=== PATIENT | female | born 1940 | race Caucasian/White ===

== ENCOUNTER 2017-07-19 03:29 | Day surgery (SDC) | payer MEDICARE, BC ==
[2015-07-11 09:45] VITALS: Ht 167.6 cm; Wt 59.0 kg
--- NOTE | 2017-07-18 22:57 | HISTORY AND PHYSICAL ---
DATE OF ADMISSION: July 19, 2017 CHIEF COMPLAINT Postmenopausal bleeding. HISTORY OF PRESENT ILLNESS The patient is a 76-year-old female with postmenopausal bleeding beginning two months ago, mild in intensity, and it is aggravated by finding a polypoid mass on saline infusion. She had an endometrial biopsy that did not show signs of malignant. She was admitted to the ICU for an electrolyte abnormality on June 17, 2017, and this is a rescheduled surgery from early in June. The plan was to proceed with hysteroscopic polypectomy and fractional D and C. MEDICATIONS Mirtazapine 30 mg daily. ALLERGIES No known allergies. REVIEW OF SYSTEMS GENITOURINARY: Per HPI. GENERAL, SKIN, EYES, EARS, NOSE, MOUTH, NECK, RESPIRATORY, CARDIOVASCULAR, GASTROINTESTINAL, MUSCULOSKELETAL, NEUROLOGIC, PSYCHIATRIC: All reviewed and noncontributory. SURGICAL HISTORY Breast lumpectomy. PAST MEDICAL HISTORY 1. Pneumonia in 2003. 2. Breast cancer. 3. The hospitalization in June 2017. FAMILY HISTORY Father with prostate cancer. Mother with cancer. SOCIAL HISTORY She drinks regularly. She is a nonsmoker. No illicit drug use. 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 PHYSICAL EXAMINATION VITAL SIGNS: BP 110/66, temp 97.6, weight 136. CONSTITUTIONAL: Well-nourished, well-developed female in no distress. SKIN: Without rash or lesions. NECK: Supple, without masses. HEART: Regular rate and rhythm. LUNGS: Clear to auscultation bilaterally. ABDOMEN: Soft, nontender, nondistended. Bowel sounds positive. EXTREMITIES: Nontender. No edema. PSYCHIATRIC: Alert and oriented times three. Normal mood and affect. PELVIC: Normal external female genitalia. Atrophic vaginal lining. Uterus was small and nontender. No adnexal masses or tenderness. ASSESSMENT AND PLAN Uterine polyp with postmenopausal bleeding. Plan to perform hysteroscopic polypectomy and fractional dilatation and curettage. [facility]
[~2017-07-19] VITALS: Ht 167.6 cm; Wt 59.0 kg
[~2017-07-19 03:29] MED LIST: CELECOXIB 200 MG CAP PO ONE; CIPR-345 PO; CYAN50008 PO; FAMOTIDINE 20 MG TAB PO ONE; HYDROmorphone HCL 2 MG TAB PO ONE; INSU100I30 SUBQ; LIDOCAINE/SOD BICARB 8.4% SYR ID ONE; MAGN400T36 PO; MIDAZOLAM 2 MG/2 ML VIAL IVP PRN; MIRT-28 PO; NS(*) 0.9% 1000 ML BAG 1,000 ML IV PRN; PANT40TA65 PO; POTA-23 PO; PRED-314 PO; SIMV-42 PO; TRAZ-156 PO; VEN75 PO; cefOXitin/DEX(*) 2GM/50ML PREM 50 ML IVPB ONE
[2017-07-19 06:23] LABS: PLATELET COUNT, AUTOMATED 278 K/uL (150-450)
[2017-07-19] MEDS ORDERED: PROPOFOL EMUL(*) 10MG/ML 20 ML 20 ML ONE (06:44)
[2017-07-19] MEDS ORDERED: ONDANSETRON 4 MG/2 ML VIAL ONE (06:44)
[2017-07-19] MEDS ORDERED: LIDOCAINE MPF 1% 5 ML VIAL ONE (06:44)
[2017-07-19] MEDS ORDERED: fentaNYL CITR 100 MCG/2 ML AMP ONE (06:44)
[2017-07-19] MEDS ORDERED: DEXAMETHASONE SOD PHOS 10MG/ML ONE (06:44)
[2017-07-19] MEDS ORDERED: CELECOXIB 200 MG CAP PO ONE ×2 (06:45→08:40)
[2017-07-19] MEDS ORDERED: KETAMINE HCL 200 MG/20 ML MDV ONE (06:56)
[2017-07-19 07:10] VITALS: BP 136/77
[2017-07-19] MEDS ORDERED: IBUP800T37 PO (07:27)
[2017-07-19] MEDS ORDERED: HYDR2TAB4 PO (07:27)
--- NOTE | 2017-07-19 07:27 | Post Operative Note ---
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
[2017-07-19] MEDS ORDERED: PHENYLEPHRINE/NS/PF 0.4MG/10ML ONE (07:50)
[2017-07-19] MEDS ORDERED: LR(*) 1000 ML BAG 1,000 ML IV ONE (08:01)
[2017-07-19] MEDS ORDERED: METOCLOPRAMIDE 10 MG/2 ML SDV IVP PRN (08:05)
[2017-07-19] MEDS ORDERED: HYDROmorphone HCL 2 MG TAB PO PRN (08:05)
[2017-07-19] MEDS ORDERED: LIDOCAINE/SOD BICARB 8.4% SYR ID ONE (08:40)
[2017-07-19] MEDS ORDERED: FAMOTIDINE 20 MG TAB PO ONE (08:40)
[2017-07-19] MEDS ORDERED: cefOXitin/DEX(*) 2GM/50ML PREM 50 ML IVPB ONE (08:40)
[2017-07-19] MEDS ORDERED: NORMOSOL R SOLN(*) 1000 ML BAG 1,000 ML IV PRN (08:40)
[2017-07-19] MEDS ORDERED: HYDROmorphone HCL 2 MG TAB PO ONE ×2 (08:40→09:40)
[2017-07-19] MEDS ORDERED: MIDAZOLAM 2 MG/2 ML VIAL IVP PRN (08:40)
[2017-07-19] MEDS ORDERED: IBUPROFEN 800 MG TAB PO SCH (09:00)
[2017-07-19 09:05] VITALS: BP 150/97
[2017-07-19 09:30] VITALS: BP 141/86
[2017-07-19 10:00] VITALS: BP 146/85
[2017-07-19 10:12] VITALS: BP 163/101
[2017-07-19 10:17] VITALS: BP 170/92
--- NOTE | 2017-07-19 13:33 | BRAGG SUCTION D&C ---
EVENT DATE: July 19, 2017 SURGEON: Steve Wagner MD ANESTHESIOLOGIST: Fritz Pantoja MD ANESTHESIA: General PREOPERATIVE DIAGNOSES 1. Postmenopausal bleeding. 2. Uterine polyp. POSTOPERATIVE DIAGNOSES 1. Postmenopausal bleeding. 2. Uterine polyp. PROCEDURE PERFORMED Hysteroscopic polypectomy, fractional dilation and curettage. COMPLICATIONS None. FLUIDS 800 mL of Normosol IV. She had hysteroscopic fluid, 1100 mL, with a deficit of 239 mL. ESTIMATED BLOOD LOSS Minimal. INDICATIONS The patient is 76-year-old postmenopausal female with bleeding noted two months ago. She had planned to perform a hysteroscopic procedure in June, but had an electrolyte abnormality which was corrected on early June, then postponed until today. FINDINGS Uterus 6 x 5 cm. No adnexal masses. She had a sessile uterine polyp within the uterine cavity. PROCEDURE After informed consent was obtained, the patient was taken to the operating room with IV running and placed in the supine position where general anesthesia was obtained without difficulty. She was then placed in the [facility], examined under anesthesia with the above findings. She was prepped and draped in the usual fashion. Her bladder was drained. A side-out speculum was placed into the vagina. Cervix was grasped with a single-toothed tenaculum. The Kevorkian curette was used to obtain an endocervical curettage, the sample passed off the table. The uterus sounded and the cervix dilated to allow passage of hysteroscope. Hysteroscope was advanced. The polyps were noted within the uterine cavity. The MyoSure light was then used to shave the polyps and were sent to pathology. A sharp curette was then used to obtain endometrial curettage, sample passed off the table. Once again, the hysteroscope was passed. No abnormalities or injuries were noted. All instruments were then removed from the vagina. The tenaculum sites were hemostatic. Patient was taken out of the [facility], awakened from anesthesia and taken to the recovery room in stable condition. [facility]ISION[facility]
== END 2017-07-19 09:05 | disposition home or self-care (01) ==
LOC: OR 03:29
PROVIDERS: ATTEND Obstetrics & Gynecology
DX: N95.0 Postmenopausal bleeding (principal); N84.0 Polyp of corpus uteri
CPT/HCPCS: 36415; 58558; 85025; 88305; A9270; J0694; J1100; J2001; J2370; J2405; J2704; J3010; J3490; 82310; 82374; 82435; 82565; 82947; 84132; 84295; 84520

== ENCOUNTER 2017-09-19 13:00 | Outpatient (RCR) | payer MEDICARE, BC ==
[2015-07-11 09:45] VITALS: Ht 170.2 cm; Wt 61.8 kg
[2017-07-04 11:16] VITALS: BP 163/97
[2017-07-04 12:19] LABS: PLATELET COUNT, AUTOMATED 265 K/uL (150-450)
--- NOTE | 2017-07-04 19:18 | ONCOLOGY CONSULTATION ---
EVENT DATE: July 04, 2017 REFERRING PHYSICIAN Yumiko Jacques MS, PASylvainC REASON FOR CONSULTATION Evaluation and management of hereditary hemochromatosis. HISTORY OF PRESENT ILLNESS Patient is a 76-year-old female who has a history of frequent nausea and vomiting with frequent hospitalization in the past for that. During her evaluation the patient was checked for iron, and her iron studies came back high. Her serum iron was 297, TIBC 234, iron saturation 126.9%, transferring was 225 and ferritin was 904. Genetic testing for hemochromatosis came back positive for double heterozygous for C282Y and H63D mutations. PAST MEDICAL HISTORY 1. History of right breast cancer. 2. Hypertension. PAST SURGICAL HISTORY 1. Right lumpectomy and lymph node dissection for breast cancer. 2. Left foot reconstruction surgery. 3. Bunionectomy bilaterally. FAMILY HISTORY Mother had breast cancer. Father had pancreatic cancer. SOCIAL HISTORY Patient is single with no children. 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 Denies any abuse of tobacco or illicit drugs. She drinks occasionally. CURRENT MEDICATIONS 1. Mirtazapine 30 mg daily. 2. Magnesium oxide 400 mg daily. 3. Potassium chloride 10 mEq two times daily. ALLERGIES No known drug allergies. REVIEW OF SYSTEMS CONSTITUTIONAL: No appetite or weight change. No fever, chills or sweating. No recent infection. HEENT: Ears: No tinnitus or hearing problem. Nose: No nasal discharge or epistaxis. Throat: No sore throat or mouth ulcers. Eyes: No diplopia or visual changes. RESPIRATORY: No shortness of breath. No cough, expectoration or hemoptysis. CARDIOVASCULAR: No chest pain, orthopnea, or paroxysmal nocturnal dyspnea (PND) . No edema. No palpitations. GASTROINTESTINAL: No nausea or vomiting. No diarrhea or constipation. No change in bowel movements. No heartburn or swallowing difficulties. No abdominal pain. No jaundice. No hematemesis, melena or rectal bleeding. GENITOURINARY: No hematuria or dysuria. MUSCULOSKELETAL: No pain in the muscles, joints or bones. NEUROLOGICAL: No tingling or numbness in the hands or feet. No headaches or convulsions. HEMATOLOGIC/LYMPHATIC: No bleeding or easy bruising. No weakness or fatigue. No enlarged lymph nodes. SKIN: No skin rash or lumps. PSYCHIATRIC: No anxiety or depression. PHYSICAL EXAMINATION GENERAL: Looks stable. Well-developed, well-nourished, and in no acute distress. VITAL SIGNS: Blood pressure 163/97, pulse 80 per minute, respirations 16 per minute, temperature 98.7, pulse ox 97% on room air. HEENT: Head: Atraumatic. No sinus tenderness to palpation. Eyes: No icterus or conjunctivitis. Mouth and throat: No oral thrush or mucositis. NECK: Supple. No cervical or supraclavicular lymphadenopathy. LUNGS: Clear to auscultation and percussion bilaterally. HEART: Regular rate and rhythm. No gallops, murmurs, clicks or rubs. ABDOMEN: Soft and lax. No tenderness. No hepatosplenomegaly. No masses. EXTREMITIES: No cyanosis, clubbing or edema. LYMPHATICS: No peripheral lymphadenopathy. NEUROLOGICAL: Conscious, alert and oriented times three. No focal motor or sensory deficits. PSYCHIATRIC: Mood and affect appear normal. SKIN: No skin rash, bruise or purpuric eruption. ASSESSMENT Hereditary hemochromatosis with double heterozygous for C282Y had H63D mutations with high iron studies. Serum ferritin was 904 and iron saturation was 126.9%. I spent a long time with the patient explaining her disease and the complications of that disease if not treated. I also offered her induction phlebotomy to deplete the serum ferritin to below 100 and iron saturation below 60%, and after achievement of those parameters then we will start maintenance phlebotomy to keep those parameters in check. Patient agreed to start her phlebotomy sessions. I am planning to start phlebotomizing 500 mL of blood every 10 days initially, as long as her hematocrit is above 30%. I will see her in three months from now with CBC, iron studies with ferritin and CMP. Patient was advised to contact us if she has any problem with her phlebotomy sessions. I will consider IV infusion of normal saline if she develops dizziness or weakness with her phlebotomies. PLAN 1. Check CBC, chem panel, iron studies with ferritin today. 2. Check CBC every 10 days and proceed with phlebotomy if the hematocrit is above 30%. 3. Phlebotomize 500 mL of blood every 10 days. 4. Patient is to return in three months with CBC, chem panel, iron studies with ferritin. 5. Patient is to contact us for any new concerns or complaints. [facility]
[2017-07-26 13:42] LABS: PLATELET COUNT, AUTOMATED 252 K/uL (150-450)
[2017-07-26] MEDS: LIDOCAINE/SOD BICARB 8.4% SYR ID PRN (14:55)
[2017-07-26] MEDS: NS(*) 0.9% 500 ML BAG 500 ML IV PRN (14:55)
[2017-07-26 14:56] VITALS: BP 132/102
[2017-08-05] MEDS: LIDOCAINE/SOD BICARB 8.4% SYR ID PRN (13:37)
[2017-08-05] MEDS: NS(*) 0.9% 500 ML BAG 500 ML IV PRN (13:38)
[2017-08-05 13:39] VITALS: BP 113/66
[2017-08-15 13:16] VITALS: BP 136/87
[2017-08-15] MEDS: NS(*) 0.9% 500 ML BAG 500 ML IV PRN (14:24)
[2017-08-26 14:23] LABS: PLATELET COUNT, AUTOMATED 252 K/uL (150-450)
[2017-08-26] MEDS: NS(*) 0.9% 500 ML BAG 500 ML IV PRN (14:23)
[2017-08-26] MEDS: LIDOCAINE/SOD BICARB 8.4% SYR ID PRN (14:23)
[2017-08-26 14:27] VITALS: BP 132/79
[2017-09-05] MEDS: NS(*) 0.9% 500 ML BAG 500 ML IV PRN (14:02)
[2017-09-05 14:35] VITALS: BP 136/91
[~2017-09-19] VITALS: Ht 170.2 cm; Wt 61.8 kg
[~2017-09-19 13:00] MED LIST changes: -CELECOXIB 200 MG CAP PO ONE; +DEXTROSE 5%(*) 100 ML BAG 100 ML IVPB PRN; -FAMOTIDINE 20 MG TAB PO ONE; +HYDR2TAB4 PO; -HYDROmorphone HCL 2 MG TAB PO ONE; +IBUP800T37 PO; -LIDOCAINE/SOD BICARB 8.4% SYR ID ONE; -MIDAZOLAM 2 MG/2 ML VIAL IVP PRN; +NS(*) 0.9% 100 ML BAG 100 ML IVPB PRN; -NS(*) 0.9% 1000 ML BAG 1,000 ML IV PRN; +NS(*) 0.9% 500 ML BAG 500 ML IV ONE; -cefOXitin/DEX(*) 2GM/50ML PREM 50 ML IVPB ONE
[2017-09-19 13:48] VITALS: BP 103/71
[2017-09-19] MEDS: NS(*) 0.9% 500 ML BAG 500 ML IV PRN (14:48)
[2017-09-19] MEDS ORDERED: KCL (*) 20 MEQ/100 ML PREMIX 100 ML IVPB ONE (15:25)
[2017-09-19] MEDS ORDERED: KCL/NS* 20 MEQ/1000 ML PREMIX 1,000 ML IV ONE (16:00)
[2017-09-19 16:51] VITALS: BP 74/49
[2017-09-19 17:11] VITALS: BP 149/74
== END 2017-10-01 ==
LOC: SPU 13:00
PROVIDERS: ATTEND Internal Medicine Hematology
DX: E83.111 Hemochromatosis due to repeated red blood cell transfusions (principal); Z79.899 Other long term (current) drug therapy
CPT/HCPCS: 36415; 82728; 83540; 83550; 85007; 85025; 85027; 96360; 96361; 99195; G0463; J3480; J7040; 82040; 82247; 82310; 82374; 82435; 82565; 82947; 84075; 84132; 84155; 84295; 84450; 84460; 84520; 99202

== ENCOUNTER 2017-12-12 10:30 | Outpatient (RCR) | payer MEDICARE, BC ==
[2015-07-11 09:45] VITALS: Wt 61.5 kg
[2017-10-10 10:41] VITALS: BP 125/79
--- NOTE | 2017-10-10 16:59 | ONCOLOGY FOLLOW UP NOTE ---
EVENT DATE: October 10, 2017 DIAGNOSIS Hereditary hemochromatosis. CHIEF COMPLAINT Patient is here today for followup of her hereditary hemochromatosis. HEMATOLOGY HISTORY Patient is a 76-year-old female who has a history of frequent nausea and vomiting with frequent hospitalization in the past for that. During her evaluation the patient was checked for iron, and her iron studies came back high. Her serum iron was 297, TIBC 234, iron saturation 126.9%, transferring was 225 and ferritin was 904. Genetic testing for hemochromatosis came back positive for double heterozygous for C282Y and H63D mutations. HISTORY OF PRESENT ILLNESS Patient is here today for followup of her hereditary hemochromatosis. She is totally asymptomatic today. PAST MEDICAL HISTORY 1. History of right breast cancer. 2. Hypertension. PAST SURGICAL HISTORY 1. Right lumpectomy and lymph node dissection for breast cancer. 2. Left foot reconstruction surgery. 3. Bunionectomy bilaterally. FAMILY HISTORY Mother had breast cancer. Father had pancreatic cancer. SOCIAL HISTORY Patient is single with no children. 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 Denies any abuse of tobacco or illicit drugs. She drinks occasionally. CURRENT MEDICATIONS 1. Mirtazapine 30 mg daily. 2. Magnesium oxide 400 mg daily. 3. Potassium chloride 10 mEq two times daily. ALLERGIES No known drug allergies. REVIEW OF SYSTEMS CONSTITUTIONAL: No appetite or weight change. No fever, chills or sweating. No recent infection. HEENT: Ears: No tinnitus or hearing problem. Nose: No nasal discharge or epistaxis. Throat: No sore throat or mouth ulcers. Eyes: No diplopia or visual changes. RESPIRATORY: No shortness of breath. No cough, expectoration or hemoptysis. CARDIOVASCULAR: No chest pain, orthopnea, or paroxysmal nocturnal dyspnea (PND) . No edema. No palpitations. GASTROINTESTINAL: No nausea or vomiting. No diarrhea or constipation. No change in bowel movements. No heartburn or swallowing difficulties. No abdominal pain. No jaundice. No hematemesis, melena or rectal bleeding. GENITOURINARY: No hematuria or dysuria. MUSCULOSKELETAL: No pain in the muscles, joints or bones. NEUROLOGICAL: No tingling or numbness in the hands or feet. No headaches or convulsions. HEMATOLOGIC/LYMPHATIC: No bleeding or easy bruising. No weakness or fatigue. No enlarged lymph nodes. SKIN: No skin rash or lumps. PSYCHIATRIC: No anxiety or depression. PHYSICAL EXAMINATION GENERAL: Looks stable. Well-developed, well-nourished, and in no acute distress. VITAL SIGNS: Blood pressure 125/79, pulse 102 per minute, respirations 16 per minute, temperature 97.4, pulse ox 90% on room air. HEENT: Head: Atraumatic. No sinus tenderness to palpation. Eyes: No icterus or conjunctivitis. Mouth and throat: No oral thrush or mucositis. NECK: Supple. No cervical or supraclavicular lymphadenopathy. LUNGS: Clear to auscultation and percussion bilaterally. HEART: Regular rate and rhythm. No gallops, murmurs, clicks or rubs. ABDOMEN: Soft and lax. No tenderness. No hepatosplenomegaly. No masses. EXTREMITIES: No cyanosis, clubbing or edema. LYMPHATICS: No peripheral lymphadenopathy. NEUROLOGICAL: Conscious, alert and oriented times three. No focal motor or sensory deficits. PSYCHIATRIC: Mood and affect appear normal. SKIN: No skin rash, bruise or purpuric eruption. DIAGNOSTIC DATA CBC showed white count 6.6, hemoglobin 14.3, hematocrit 41.7 and platelets 207, 000. Chem panel totally normal except for blood sugar 134, carbon dioxide 21. Serum iron 81, ferritin 81, iron saturation 43.3%, TIBC 187. ASSESSMENT Hereditary hemochromatosis with double heterozygous for C282Y had H63D mutations with high iron studies. Her serum ferritin initially was 904 and iron saturation 126.9%. Patient started induction phlebotomy sessions, and her current ferritin is 81 and iron saturation 43.3%. I am planning to hold on the phlebotomy at the moment, and we will start maintenance phlebotomy whenever her iron saturation is above 60% and/or ferritin above 100. I will see her again in two months from now with CBC, chem panel, iron studies with ferritin. Patient is happy that she will not have any further blood work and phlebotomies in the next two months. PLAN 1. Continue followup. 2. Patient to return in two months with CBC, chem panel, iron studies with ferritin. 3. Phlebotomize 500 mL of blood as maintenance therapy if ferritin above 100 and/or iron saturation more than 60%. 4. Patient is to contact us for any new concerns or complaints. [facility]
[2017-12-11 10:54] VITALS: BP 161/86
[2017-12-11 10:56] LABS: PLATELET COUNT, AUTOMATED 248 K/uL (150-450)
[~2017-12-12 10:30] MED LIST changes: -DEXTROSE 5%(*) 100 ML BAG 100 ML IVPB PRN; -NS(*) 0.9% 100 ML BAG 100 ML IVPB PRN; -NS(*) 0.9% 500 ML BAG 500 ML IV ONE
[2017-12-12 10:48] VITALS: BP 117/72
--- NOTE | 2017-12-12 18:43 | ONCOLOGY FOLLOW UP NOTE ---
EVENT DATE: December 12, 2017 DIAGNOSIS Hereditary hemochromatosis. CHIEF COMPLAINT Patient is here today for followup of her hereditary hemochromatosis. HEMATOLOGY HISTORY Patient is a 77-year-old female who has a history of frequent nausea and vomiting with frequent hospitalization in the past for that. During her evaluation the patient was checked for iron, and her iron studies came back high. Her serum iron was 297, TIBC 234, iron saturation 126.9%, transferring was 225 and ferritin was 904. Genetic testing for hemochromatosis came back positive for double heterozygous for C282Y and H63D mutations. HISTORY OF PRESENT ILLNESS Patient is here today for followup of her hereditary hemochromatosis. She is complaining of easy bruising and weakness and fatigue. Patient was crying because of the phlebotomy and she does not like it. She is complaining also of having pain during the procedure and about near fainting also. PAST MEDICAL HISTORY 1. History of right breast cancer. 2. Hypertension. PAST SURGICAL HISTORY 1. Right lumpectomy and lymph node dissection for breast cancer. 2. Left foot reconstruction surgery. 3. Bunionectomy bilaterally. FAMILY HISTORY Mother had breast cancer. Father had pancreatic cancer. SOCIAL HISTORY Patient is single with no children. 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 Denies any abuse of tobacco or illicit drugs. She drinks occasionally. CURRENT MEDICATIONS 1. Mirtazapine 30 mg daily. 2. Magnesium oxide 400 mg daily. 3. Potassium chloride 10 mEq two times daily. ALLERGIES No known drug allergies. REVIEW OF SYSTEMS CONSTITUTIONAL: No appetite or weight change. No fever, chills or sweating. No recent infection. HEENT: Ears: No tinnitus or hearing problem. Nose: No nasal discharge or epistaxis. Throat: No sore throat or mouth ulcers. Eyes: No diplopia or visual changes. RESPIRATORY: No shortness of breath. No cough, expectoration or hemoptysis. CARDIOVASCULAR: No chest pain, orthopnea, or paroxysmal nocturnal dyspnea (PND) . No edema. No palpitations. GASTROINTESTINAL: No nausea or vomiting. No diarrhea or constipation. No change in bowel movements. No heartburn or swallowing difficulties. No abdominal pain. No jaundice. No hematemesis, melena or rectal bleeding. GENITOURINARY: No hematuria or dysuria. MUSCULOSKELETAL: No pain in the muscles, joints or bones. NEUROLOGICAL: No tingling or numbness in the hands or feet. No headaches or convulsions. HEMATOLOGIC/LYMPHATIC: The patient has easy bruising. She has weakness, tiredness and fatigue. No enlarged lymph nodes. SKIN: No skin rash or lumps. PSYCHIATRIC: No anxiety or depression. PHYSICAL EXAMINATION GENERAL: Looks stable. Well-developed, well-nourished, and in no acute distress. VITAL SIGNS: Blood pressure 117/72, pulse 103 per minute, respirations 16 per minute, temperature 97.7, pulse ox 94% on room air. HEENT: Head: Atraumatic. No sinus tenderness to palpation. Eyes: No icterus or conjunctivitis. Mouth and throat: No oral thrush or mucositis. NECK: Supple. No cervical or supraclavicular lymphadenopathy. LUNGS: Clear to auscultation and percussion bilaterally. HEART: Regular rate and rhythm. No gallops, murmurs, clicks or rubs. ABDOMEN: Soft and lax. No tenderness. No hepatosplenomegaly. No masses. EXTREMITIES: No cyanosis, clubbing or edema. LYMPHATICS: No peripheral lymphadenopathy. NEUROLOGICAL: Conscious, alert and oriented times three. No focal motor or sensory deficits. PSYCHIATRIC: Mood and affect appear normal. SKIN: No skin rash, bruise or purpuric eruption. DIAGNOSTIC DATA CBC showed white count 6.1, hemoglobin 14.1, hematocrit 41.2 and platelets 248, 000. Potassium 3.1, blood sugar 11.9, AST 59. The rest of the chem panel is normal. Iron studies showed serum iron 152, TIBC 174, iron saturation 87.4% and ferritin 69. ASSESSMENT Hereditary hemochromatosis with double heterozygous for C282Y had H63D mutations with high iron studies. Her ferritin initially was 904 and iron saturation was 126.9%. Patient started induction phlebotomy sessions, and her current ferritin is 69 and iron saturation 87.4%. Patient does not like frequent phlebotomies, and for this reason I am planning to follow her ferritin , and if the ferritin is above 100 we will do phlebotomy at that time, and during the phlebotomy the patient will need infusion of normal saline 500 mL of blood. I am planning to check her CBC, iron studies with ferritin every three months, and I will see her in six months with CBC and studies with ferritin and a chemistry panel. For the pain from the procedure I prescribed EMLA cream to be applied prior to pinprick. PLAN 1. Continue followup. 2. Patient to return in six months with CBC, chem panel, iron studies with ferritin. 3. CBC and iron studies to be checked every three months. 4. Phlebotomize 500 mL of blood if the ferritin is above 100 and infuse 500 mL normal saline during the procedure. 5. Patient is to contact us for any new concern or complaints. [facility]
== END 2017-12-17 10:04 | disposition home or self-care (01) ==
LOC: ONC 10:30
PROVIDERS: ATTEND Internal Medicine Hematology
DX: E83.110 Hereditary hemochromatosis (principal); Z79.899 Other long term (current) drug therapy; R53.83 Other fatigue; R53.1 Weakness
CPT/HCPCS: 36415; 82728; 83540; 83550; 85025; 85027; G0463; 82040; 82247; 82310; 82374; 82435; 82565; 82947; 84075; 84132; 84155; 84295; 84450; 84460; 84520; 99212

== ENCOUNTER 2018-03-31 13:00 | Outpatient (RCR) | payer MEDICARE, BC ==
[2015-07-11 09:45] VITALS: Wt 60.4 kg
[2018-03-20 13:46] VITALS: BP 135/76
--- NOTE | 2018-03-20 17:37 | ONCOLOGY FOLLOW UP NOTE ---
EVENT DATE: March 20, 2018 DIAGNOSIS Hereditary hemochromatosis. CHIEF COMPLAINT Patient is here today for followup of her hereditary hemochromatosis. HEMATOLOGY HISTORY Patient is a 77-year-old female who has a history of frequent nausea and vomiting with frequent hospitalization in the past for that. During her evaluation the patient was checked for iron, and her iron studies came back high. Her serum iron was 297, TIBC 234, iron saturation 126.9%, transferring was 225 and ferritin was 904. Genetic testing for hemochromatosis came back positive for double heterozygous for C282Y and H63D mutations. HISTORY OF PRESENT ILLNESS Patient is here today for followup of her hereditary hemochromatosis. She is complaining of actually maybe allergies and watering of her eyes lately. She does not like phlebotomies and she did not have one for a long time now. Patient had blood work done at [facility] and she found that her iron is high, so she comes back to discuss about further options. PAST MEDICAL HISTORY 1. History of right breast cancer. 2. Hypertension. PAST SURGICAL HISTORY 1. Right lumpectomy and lymph node dissection for breast cancer. 2. Left foot reconstruction surgery. 3. Bunionectomy bilaterally. FAMILY HISTORY Mother had breast cancer. Father had pancreatic cancer. SOCIAL HISTORY Patient is single with no children. 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 Denies any abuse of tobacco or illicit drugs. She drinks occasionally. CURRENT MEDICATIONS 1. Mirtazapine 30 mg daily. 2. Magnesium oxide 400 mg daily. 3. Potassium chloride 10 mEq two times daily. ALLERGIES No known drug allergies. REVIEW OF SYSTEMS CONSTITUTIONAL: No appetite or weight change. No fever, chills or sweating. No recent infection. HEENT: Ears: No tinnitus or hearing problem. Nose: No nasal discharge or epistaxis. Throat: No sore throat or mouth ulcers. Eyes: No diplopia or visual changes. She has watering of her eyes lately and she thought this was due to allergies. She is going to see an ceiling insulation blower for that. RESPIRATORY: No shortness of breath. No cough, expectoration or hemoptysis. CARDIOVASCULAR: No chest pain, orthopnea, or paroxysmal nocturnal dyspnea (PND). No edema. No palpitations. GASTROINTESTINAL: No nausea or vomiting. No diarrhea or constipation. No change in bowel movements. No heartburn or swallowing difficulties. No abdominal pain. No jaundice. No hematemesis, melena or rectal bleeding. GENITOURINARY: No hematuria or dysuria. MUSCULOSKELETAL: No pain in the muscles, joints or bones. NEUROLOGICAL: No tingling or numbness in the hands or feet. No headaches or convulsions. HEMATOLOGIC/LYMPHATIC: The patient has easy bruising. She has weakness, tiredness and fatigue. No enlarged lymph nodes. SKIN: No skin rash or lumps. PSYCHIATRIC: No anxiety or depression. PHYSICAL EXAMINATION GENERAL: Looks stable. Well-developed, well-nourished, and in no acute distress. VITAL SIGNS: Blood pressure 135/76, pulse 93 per minute, respirations 16 per minute, temperature 97, pulse ox 95% on room air. HEENT: Head: Atraumatic. No sinus tenderness to palpation. Eyes: No icterus or conjunctivitis. Mouth and throat: No oral thrush or mucositis. NECK: Supple. No cervical or supraclavicular lymphadenopathy. LUNGS: Clear to auscultation and percussion bilaterally. HEART: Regular rate and rhythm. No gallops, murmurs, clicks or rubs. ABDOMEN: Soft and lax. No tenderness. No hepatosplenomegaly. No masses. EXTREMITIES: No cyanosis, clubbing or edema. LYMPHATICS: No peripheral lymphadenopathy. NEUROLOGICAL: Conscious, alert and oriented times three. No focal motor or sensory deficits. PSYCHIATRIC: Mood and affect appear normal. SKIN: No skin rash, bruise or purpuric eruption. DIAGNOSTIC DATA Patient had blood work done at [facility]. Her hemoglobin was 15.1, hematocrit was 45%. Patient's 256,000. Serum ferritin was 417, transferrin saturation 90%, TIBC low at 233, iron total was as high as 209. Her gamma GT was high at 500 and AST was high at 104, uric acid high at 10.6 according to that lab. ASSESSMENT Hereditary hemochromatosis with double heterozygous for C282Y mutation and H63D mutation with high iron studies. Her ferritin initially was 904 and iron saturation was 126.9%. Patient started induction phlebotomy sessions. Her ferritin dropped to 69 and saturation to 87.4%, but patient does not like frequent phlebotomies, but she is concerned also about her high iron. We decided actually this time to decrease the amount of the blood withdrawn from her each session, so I am planning to withdraw 350 mL instead of 500, and at the same time we are going to infuse normal saline solution at 500 mL during the procedure to avoid her fainting spells after the phlebotomy. I am planning to check her CBC and iron studies with ferritin every two weeks, and I will phlebotomize if the ferritin is above 100 and/or iron saturation above 60%. I will see her again in two months with CBC, chem panel, iron studies with ferritin, and the patient is agreeable with the plan of management. PLAN 1. Continue followup. 2. Patient to return in two months with CBC, chem panel, iron studies with ferritin. 3. CBC and iron studies with ferritin to be checked every two weeks. 4. Phlebotomize 350 mL of blood every two weeks if the ferritin is above 100 and/or iron saturation above 60%. 5. Infuse 500 mL of normal saline during her phlebotomy session. 6. Patient is to contact us for any new concern or complaints. [place]ASIA
[~2018-03-31 13:00] MED LIST changes: +ALLO-119 PO; -TRAZ-156 PO; +TRAZ50TA34 PO
[2018-03-31 13:55] LABS: PLATELET COUNT, AUTOMATED 264 K/uL (150-450)
[2018-03-31 13:56] VITALS: BP 135/77
[2018-03-31] MEDS ORDERED: NS(*) 0.9% 100 ML BAG 100 ML IVPB PRN (15:10)
[2018-03-31] MEDS ORDERED: LIDOCAINE/SOD BICARB 8.4% SYR ID PRN (15:10)
[2018-03-31] MEDS ORDERED: NS(*) 0.9% 250 ML BAG 250 ML IVPB PRN (15:10)
[2018-03-31] MEDS ORDERED: DEXTROSE 5%(*) 100 ML BAG 100 ML IVPB PRN (15:10)
[2018-03-31 16:46] VITALS: BP 153/80
[2018-04-13] MEDS ORDERED: MOM PO (09:53)
[2018-04-16] MEDS ORDERED: OXYC20TA99 PO (10:34)
[2018-04-16] MEDS ORDERED: ALLO100T70 PO (10:34)
[2018-04-16] MEDS ORDERED: PER PO (10:34)
== END 2018-06-17 ==
LOC: SPU 13:00
PROVIDERS: ATTEND Internal Medicine Hematology
DX: E83.110 Hereditary hemochromatosis (principal); Z79.899 Other long term (current) drug therapy; R53.83 Other fatigue; R53.1 Weakness
CPT/HCPCS: 82728; 83540; 83550; 85025; 99195; G0463; 99212

== ENCOUNTER 2018-04-12 21:40 | Inpatient (IN) | payer MEDICARE, BC ==
[~2018-04-12] VITALS: Ht 170.2 cm; Wt 59.2 kg
[~2018-04-12 21:40] MED LIST changes: -ALLO100T70 PO; -MOM PO; -OXYC20TA99 PO; -PER PO
--- NOTE | 2018-04-12 21:43 | ER Report ---
History and Physical Time Seen By MD: 21:42 HPI/ROS CHIEF COMPLAINT: Fall with right hip pain HISTORY OF PRESENT ILLNESS: This is a 77-year-old female. She fell at home, tripped over a stool. EMS was called to her home and they helped her up to the couch. She refused transport at that time she thought she was doing okay. Over the next few hours so she had worsening pain, especially with any movement. Pain is mainly in the lateral portion of the right hip. She has normal sensation in the leg. EMS did give her fentanyl on the way in to help with pain. She rates the pain 6 on a 1-10 scale right now when she moves it, but at rest she is not really having any pain. Allergies: Coded Allergies: No Known Drug Allergies (Unverified , 04/12/18) Home Meds Active Scripts Ibuprofen (IBUPROFEN) 800 Mg Tablet, 1 TAB PO Q8H, #30 TAB 0 Refills Take with food every 8 hours. Prov:ALO RESENDEZ MD 07/19/17 Hydromorphone Hcl (HYDROMORPHONE HCL) 2 Mg Tablet, 2-4 MG PO Q4H for PAIN, #20 TAB 0 Refills Prov:ALO RESENDEZ MD 07/19/17 Potassium Chloride (KLOR-CON 10) 10 Meq Tablet.er, 10 MEQ PO BIDBS for low potassium, #60 TAB Prov:SHAVONNE AGUILAR MD 05/24/17 Magnesium Oxide (MAGNESIUM OXIDE) 400 Mg Tablet, 400 MG PO DAILY, #30 TAB Prov:SHAVONNE AGUILAR MD 05/24/17 Reported Medications Allopurinol (ZYLOPRIM) 300 Mg Tablet, 15 MG PO QDAY, TAB 03/20/18 Mirtazapine (MIRTAZAPINE) 30 Mg Tab.rapdis, 30 MG PO DAILY 05/20/17 Past Medical/Surgical History Patient with history of gout, arthritis, GERD, hypertension, hereditary hemochromatosis, seasonal affective disorder. She also has a history of breast cancer status post lumpectomy with radiation. Also left foot reconstruction and some bunion surgeries. Reviewed Nurses Notes: Yes Hx Smoking: No Smoking Status: Never Smoker Hx Substance Use Disorder: No Hx Alcohol Use: Yes (sometimes) Constitutional Vital Sign - Last 24 Hours 04/12/18 04/12/18 04/12/18 04/12/18 21:40 21:42 21:44 21:55 Temp 97.9 Pulse ??? 87 89 Resp 12 B/P (MAP) 168/110 (129) 168/110 Pulse Ox 84 96 O2 Delivery Room Air 04/12/18 04/12/18 04/12/18 04/12/18 22:00 22:10 22:25 22:30 Pulse 91 93 91 Pulse Ox 97 98 98 O2 Flow Rate 2.0 04/12/18 04/12/18 04/12/18 04/12/18 22:31 22:45 23:00 23:15 Pulse 95 100 101 B/P (MAP) 148/92 (110) 136/83 (100) Pulse Ox 94 95 95 04/12/18 04/13/18 23:30 00:00 Pulse 105 ??? B/P (MAP) 144/90 (108) ???/??? (1665) Pulse Ox 96 Physical Exam General Appearance: The patient is alert. No acute distress. Non-toxic in appearance. Eyes: Pupils are equal, round. No pallor, injection or icterus. ENT: Mucous membranes are moist. Neck: Supple and non tender. Respiratory: Lungs are clear to auscultation. Cardiovascular: Regular rate and rhythm. No murmurs, gallops or rubs. No edema. Normal capillary refill. Gastrointestinal: Abdomen is soft and non tender. Nondistended. Normal active bowel sounds. Neurological: Alert and oriented x3. No numbness in the right leg. She is able to move the lower foot and ankle without any pain. Skin: Warm and dry. No rashes. Musculoskeletal: Significant pain with any movement of the right hip. Also pain in the lateral aspect over the greater trochanter. No pain in the pelvis and no laxity. Pelvic binder on. This was loosened and did not cause significant pain. DIFFERENTIAL DIAGNOSIS: After history and physical exam, differential diagnosis was considered for patient with fall now with hip pain concerning for possible hip fracture, less likely to show pelvic fracture. We will obtain imaging Medical Decision Making Data Points Result Diagram: 04/13/18 0017 04/13/18 0017 Laboratory Hematology Test 04/13/18 00:17 Red Blood Count 3.69 M/uL (4.17-5.56) Mean Corpuscular Volume 103.6 fL (80.0-96.0) Mean Corpuscular Hemoglobin 36.2 pg (26.0-33.0) Mean Corpuscular Hemoglobin Concent 35.0 g/dL (32.0-36.0) Red Cell Distribution Width 14.5 % (11.5-14.5) Mean Platelet Volume 8.0 fL (7.2-11.1) Neutrophils (%) (Auto) 82.0 % (39.4-72.5) Lymphocytes (%) (Auto) 9.5 % (17.6-49.6) Monocytes (%) (Auto) 7.6 % (4.1-12.4) Eosinophils (%) (Auto) 0.0 % (0.4-6.7) Basophils (%) (Auto) 0.9 % (0.3-1.4) Nucleated RBC Relative Count (auto) 0.1 /100WBC Neutrophils # (Auto) 8.3 K/uL (2.0-7.4) Lymphocytes # (Auto) 1.0 K/uL (1.3-3.6) Monocytes # (Auto) 0.8 K/uL (0.3-1.0) Eosinophils # (Auto) 0.0 K/uL (0.0-0.5) Basophils # (Auto) 0.1 K/uL (0.0-0.1) Nucleated RBC Absolute Count (auto) 0.01 K/uL Sodium Level 137 mmol/L (137-145) Potassium Level 3.3 mmol/L (3.5-5.0) Chloride Level 101 mmol/L (98-107) Carbon Dioxide Level 22 mmol/L (22-31) Blood Urea Nitrogen 7 mg/dl (7-18) Creatinine 0.60 mg/dl (0.52-1.04) Glomerular Filtration Rate Calc > 60.0 Random Glucose 121 mg/dl (75-110) Calcium Level 8.5 mg/dl (8.4-10.2) Total Bilirubin 0.7 mg/dl (0.2-1.3) Aspartate Amino Transf (AST/SGOT) 121 U/L (0-35) Alanine Aminotransferase (ALT/SGPT) 68 U/L (0-56) Alkaline Phosphatase 71 U/L (0-126) Total Protein 6.8 g/dl (6.3-8.2) Albumin 4.0 g/dl (3.5-5.0) Chemistry Test 04/13/18 00:17 White Blood Count 10.1 k/uL (4.5-11.0) Red Blood Count 3.69 M/uL (4.17-5.56) Hemoglobin 13.4 g/dL (12.0-16.0) Hematocrit 38.2 % (34.0-47.0) Mean Corpuscular Volume 103.6 fL (80.0-96.0) Mean Corpuscular Hemoglobin 36.2 pg (26.0-33.0) Mean Corpuscular Hemoglobin Concent 35.0 g/dL (32.0-36.0) Red Cell Distribution Width 14.5 % (11.5-14.5) Platelet Count 183 K/uL (150-450) Mean Platelet Volume 8.0 fL (7.2-11.1) Neutrophils (%) (Auto) 82.0 % (39.4-72.5) Lymphocytes (%) (Auto) 9.5 % (17.6-49.6) Monocytes (%) (Auto) 7.6 % (4.1-12.4) Eosinophils (%) (Auto) 0.0 % (0.4-6.7) Basophils (%) (Auto) 0.9 % (0.3-1.4) Nucleated RBC Relative Count (auto) 0.1 /100WBC Neutrophils # (Auto) 8.3 K/uL (2.0-7.4) Lymphocytes # (Auto) 1.0 K/uL (1.3-3.6) Monocytes # (Auto) 0.8 K/uL (0.3-1.0) Eosinophils # (Auto) 0.0 K/uL (0.0-0.5) Basophils # (Auto) 0.1 K/uL (0.0-0.1) Nucleated RBC Absolute Count (auto) 0.01 K/uL Glomerular Filtration Rate Calc > 60.0 Calcium Level 8.5 mg/dl (8.4-10.2) Total Bilirubin 0.7 mg/dl (0.2-1.3) Aspartate Amino Transf (AST/SGOT) 121 U/L (0-35) Alanine Aminotransferase (ALT/SGPT) 68 U/L (0-56) Alkaline Phosphatase 71 U/L (0-126) Total Protein 6.8 g/dl (6.3-8.2) Albumin 4.0 g/dl (3.5-5.0) EKG/Imaging EKG Interpretation 12 lead EKG: Rhythm: Sinus tachycardia, rate 102 [place]: normal QRS: normal ST segments: Nonspecific ST, no elevation or depression noted Imaging RIGHT HIP: Indication: Injury. Technique: Two views were obtained. Comparison: 05/22/2017 Findings: There is an acute fracture of the right femoral neck near the base of the femoral head. There is no evidence of dislocation. The skeletal structures are otherwise intact. There is normal mineralization. No focal soft tissue deformity is evident. IMPRESSION: Acute fracture of the right femoral neck.. Report Dictated By: Jarrod Randolph MD at 04/12/2018 10:46 PM AP CHEST 04/12/2018 11:16 PM. INDICATION: Hip fracture, preoperative evaluation. COMPARISON: 05/22/2017. FINDINGS: Lungs are well-expanded. There is no consolidation. No pleural effusion or pneumothorax. Heart size is normal. IMPRESSION: No acute abnormality. Report Dictated By: Yan Torres MD at 04/12/2018 11:55 PM ED Course/Re-evaluation Clinical Indication for ER IV: IV Access ED Course X-ray shows a femoral neck fracture on the right. Called and spoke with Dr. Rosemary thompson. Based on age and medical conditions he asked if we would admit to the hospitalist. They will evaluate and likely do surgery tomorrow after clearance. I called and spoke with Dr. Aguilar our hospitalist and will admit him. I did order chest x-ray, EKG, and labs. Decision to Disposition Date: Apr 13, 2018 Decision to Disposition Time: 00:01 Depart Departure Latest Vital Signs Vital Signs Date Time Temp Pulse Resp B/P (MAP) Pulse Ox O2 Delivery O2 Flow Rate FiO2 04/13/18 00:00 ?/??? (1665) 04/12/18 23:30 96 04/12/18 22:00 2.0 04/12/18 21:44 97.9 12 Room Air Impression: Primary Impression: Femoral neck fracture Condition: Condition Unchanged Disposition: Admitted from ER Problem Qualifiers Primary Impression: Femoral neck fracture Encounter type: initial encounter Fracture type: closed Laterality: right Qualified Codes: S72.001A - Fracture of unspecified part of neck of right femur, initial encounter for closed fracture TANYA HERNANDEZ MD Apr 12, 2018 21:43
[2018-04-12] MEDS ORDERED: HYDROMORPHONE HCL 1 MG/ML SYRINGE IVP ONE (22:35)
--- NOTE | 2018-04-12 22:51 | RADIOLOGY IMAGING REPORT ---
FACILITY: [facility] - [place] PATIENT NAME: Rosemarie Fu : 1940 MR: [id number] V: [id number] EXAM DATE: ORDERING PHYSICIAN: TANYA HERNANDEZ TECHNOLOGIST: Location: [facility] [place] Patient: Rosemarie Fu : 1940 Visit/Account:[id number] Date of Sevice: 04/12/2018 RIGHT HIP: Indication: Injury. Technique: Two views were obtained. Comparison: 05/22/2017 Findings: There is an acute fracture of the right femoral neck near the base of the femoral head. The re is no evidence of dislocation. The skeletal structures are otherwise intact. There is normal corporate claims examiner alization. No focal soft tissue deformity is evident. IMPRESSION: Acute fracture of the right femoral neck.. Report Dictated By: Jarrod Randolph MD at 04/12/2018 10:46 PM Report E-Signed By: Jarrod Randolph MD at 04/12/2018 10:48 PM WSN:[id number]
[2018-04-13] VITALS (15 sets, daily range): BP systolic 130–170; BP diastolic 66–100; Ht 170.2 cm; Wt 59.2 kg
--- NOTE | 2018-04-13 | RADIOLOGY IMAGING REPORT ---
FACILITY: [facility] PATIENT NAME: Rosemarie Fu : 1940 MR: [id number] V: [id number] EXAM DATE: ORDERING PHYSICIAN: TANYA HERNANDEZ TECHNOLOGIST: Location: [facility] Patient: Rosemarie Fu : 1940 Visit/Account:[id number] Date of Sevice: 04/12/2018 AP CHEST 04/12/2018 11:16 PM. INDICATION: Hip fracture, preoperative evaluation. COMPARISON: 05/22/2017. FINDINGS: Lungs are well-expanded. There is no consolidation. No pleural effusion or pneumothorax. Heart size i s normal. IMPRESSION: No acute abnormality. Report Dictated By: Yan Torres MD at 04/12/2018 11:55 PM Report E-Signed By: Yan Torres MD at 04/12/2018 11:56 PM WSN:[id number]
[2018-04-13 00:28] LABS: PLATELET COUNT, AUTOMATED 183 K/uL (150-450)
--- NOTE | 2018-04-13 02:35 | EKG ---
FACILITY: [facility] PATIENT NAME: IVY ANAYA : [id number] MR: [id number] V: [id number] EXAM DATE: ORDERING PHYSICIAN: TANYA HERNANDEZ TECHNOLOGIST: [place] Test Reason : PRE-OP Blood Pressure : / mmHG Vent. Rate : 102 BPM Atrial Rate : 102 BPM P-R Int : 160 ms QRS Dur : 086 ms QT Int : 392 ms P-R-T Axes : 083 077 074 degrees QTc Int : 510 ms Sinus tachycardia Nonspecific ST abnormality Abnormal ECG Confirmed by JARRED WESLEY ([id number]) on 04/13/2018 3:16:38 AM Referred By: Confirmed By:JARRED WESLEY
[2018-04-13] MEDS ORDERED: INFLUENZA VIRUS VAC 0.5ML SYR IM ONLY ONE (02:40)
[2018-04-13] MEDS ORDERED: HYDROmorphone PCA 6 MG/30 ML IV PRN (02:40)
[2018-04-13] MEDS ORDERED: PROMETHAZINE 25 MG/ML 1 ML AMP IVP PRN ×2 (02:40→17:35)
--- NOTE | 2018-04-13 03:08 | History & Physical ---
History of Present Illness Chief Complaint Fall with right hip pain History of Present Illness 77yo female with PMHx significant for hemochromatosis, ataxia, breast cancer. She reports falling at home while she was "on the phone talking to an old friend" and walking around her house. She denied any CP/SOB/palpitations/focal weakness. She caught her foot on a stool that was in a different place than usual. She fell to the floor and was unable to arise. She was able to contact EMS and ultimately was brought to the ER. She was evaluated and found to have right femoral neck fracture. Surgical correction with orthopedics is planned. She has had anesthesia in the past without problems. No history of bleeding or clotting problems. She has been having phlebotomy intermittently for her hemochromatosis. 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 Prov:ALO RESENDEZ MD 07/19/17 Hydromorphone Hcl (HYDROMORPHONE HCL) 2 Mg Tablet, 2-4 MG PO Q4H for PAIN, #20 TAB 0 Refills Prov:ALO RESENDEZ MD 07/19/17 Potassium Chloride (KLOR-CON 10) 10 Meq Tablet.er, 10 MEQ PO BIDBS for low potassium, #60 TAB Prov:SHAVONNE WESLEY MD 05/24/17 Magnesium Oxide (MAGNESIUM OXIDE) 400 Mg Tablet, 400 MG PO DAILY, #30 TAB Prov:SHAVONNE WESLEY MD 05/24/17 Reported Medications Allopurinol (ZYLOPRIM) 300 Mg Tablet, 15 MG PO QDAY, TAB 03/20/18 Mirtazapine (MIRTAZAPINE) 30 Mg Tab.rapdis, 30 MG PO DAILY 05/20/17 Allergies: Coded Allergies: No Known Drug Allergies (Unverified , 04/12/18) Hx Smoking: No Smoking Status: Former Smoker, Light Tobacco Smoker Exposure to Second Hand Smoke?: Yes Caffeine Intake: Coffee, Tea Caffeine/Cups Per Day: 2-3 in a week Hx Alcohol Use: Yes Alcohol Used: Wine Hx Substance Use Disorder: No Social Drug Use: Never History of IV Drug Use: No Review of Systems Constitutional: No Fever, No Chills, No Night Sweats Eyes: No Vision Change, No Loss of Vision ENT: No Hearing Loss Cardiovascular: No Chest Pain, No Palpitations Respiratory: No Shortness of Breath, No Cough Gastrointestinal: Nausea, Vomiting; No Hematemesis, No Hematochezia, No Melena, No Abdominal Pain Genitourinary: No Dysuria, No Hematuria Musculoskeletal: Impaired Mobility Exam Vital Signs Vital Signs Date Time Temp Pulse Resp B/P (MAP) Pulse Ox O2 Delivery O2 Flow Rate FiO2 04/13/18 01:44 98.2 95 164/93 (116) 97 Nasal Cannula 2.0 04/12/18 21:44 12 General Appearance: Alert, Awake Neuro: Other (CN intact/motor and sensory intact grossly - lower extremities not fully tested due to acute fracture) Eyes: PERRLA Cardiovascular: Regular Rate and Rhythm Respiratory: Clear to Auscultation Chest: No Tenderness GI: Abd Soft and Non-Tender : No CVA Tenderness Extremities: Warm, Perfused Integumentary: Generalized Fragile Skin Psych: Alert & Oriented X3 Medical Decision Making Data Points Result Diagram: 04/13/18 0017 04/13/18 001 Item Value Date Time Albumin 4.0 g/dl 04/13/18 0017 Total Protein 6.8 g/dl 04/13/18 0017 Alkaline Phosphatase 71 U/L 04/13/18 0017 Alanine Aminotransferase (ALT/SGPT) 68 U/L H 04/13/18 0017 Aspartate Amino Transf (AST/SGOT) 121 U/L H 04/13/18 0017 Total Bilirubin 0.7 mg/dl 04/13/18 0017 Calcium Level 8.5 mg/dl 04/13/18 0017 EKG / Imaging Imaging PATIENT NAME: Rosemarie Fu : 1940 MR: [id number] V: [id number] EXAM DATE: ORDERING PHYSICIAN: TANYA HERNANDEZ TECHNOLOGIST: Location: [facility] Patient: Rosemarie Fu : 1940 Visit/Account:[id number] Date of Sevice: 04/12/2018 RIGHT HIP: Indication: Injury. Technique: Two views were obtained. Comparison: 05/22/2017 Findings: There is an acute fracture of the right femoral neck near the base of the femoral head. There is no evidence of dislocation. The skeletal structures are otherwise intact. There is normal mineralization. No focal soft tissue deformity is evident. IMPRESSION: Acute fracture of the right femoral neck.. Report Dictated By: Jarrod Randolph MD at 04/12/2018 10:46 PM Report E-Signed By: Jarrod Randolph MD at 04/12/2018 10:48 PM WSN:[id number] PATIENT NAME: Rosemarie Fu : 1940 MR: [id number] V: [id number] EXAM DATE: [id number] ORDERING PHYSICIAN: TANYA HERNANDEZ TECHNOLOGIST: Location: [facility] Patient: Rosemarie Fu : 1940 Visit/Account:[id number] Date of Sevice: 04/12/2018 AP CHEST 04/12/2018 11:16 PM. INDICATION: Hip fracture, preoperative evaluation. COMPARISON: 05/22/2017. FINDINGS: Lungs are well-expanded. There is no consolidation. No pleural effusion or pneumothorax. Heart size is normal. IMPRESSION: No acute abnormality. Report Dictated By: Yan Torres MD at 04/12/2018 11:55 PM Report E-Signed By: Yan Torres MD at 04/12/2018 11:56 PM WSN:[id number] Assessment and Plan Problems: (1) Hip fracture, right Status: Acute Assessment & Plan: She will be at some increased risk mainly due to her age and history of hereditary hemochromatosis. Her LFTs are modestly elevated most likely secondary to her hemochromatosis as she has not been phlebotomizing as directed by Dr. Tee Ruth. Will need to check her protime/INR and EKG. Pending this, she should be a reasonable candidate for surgery/anesthesia. She will need DVT prophylaxis post-op. (2) Hypokalemia Status: Chronic Assessment & Plan: She has been on oral replacement, but is slightly low. Will give replacement with IV fluids. Recheck labs. (3) Hemochromatosis Status: Chronic Assessment & Plan: She follows with Dr. Tee Ruth at [facility], but has been intermittent with her phlebotomy. Venous Thromboembolism Antithrombotics Is Pt On Any Antithrombotics?: No (due to upcoming surgical procedure) Exam Sepsis Risk: No Definite Risk JARRED WESLEY MD Apr 13, 2018 03:08
[2018-04-13] MEDS ORDERED: KCL (*) 20 MEQ/100 ML PREMIX 100 ML IV ONE (03:10)
[2018-04-13] MEDS: KCL/NS* 20 MEQ/1000 ML PREMIX 1,000 ML IV SCH ×2 (03:38→13:28)
[2018-04-13] MEDS ORDERED: HYDROMORPHONE HCL 1 MG/ML SYRINGE IVP ONE (03:45)
[2018-04-13 07:50] LABS: INR 1.02
[2018-04-13] MEDS ORDERED: NORMOSOL R SOLN(*) 1000 ML BAG 1,000 ML IV ONE ×3 (08:52→16:35)
[2018-04-13] MEDS ORDERED: MOM PO (09:53)
[2018-04-13] MEDS ORDERED: FAMOTIDINE 20 MG TAB PO ONE (13:30)
[2018-04-13] MEDS ORDERED: ROPIVACAINE 0.2% 20 ML VIAL ONE (14:34)
[2018-04-13] MEDS ORDERED: MIDAZOLAM 2 MG/2 ML VIAL ONE ×2 (14:38→15:11)
[2018-04-13] MEDS ORDERED: KETAMINE HCL 200 MG/20 ML MDV ONE (14:40)
[2018-04-13] MEDS ORDERED: PROPOFOL EMUL(*) 10MG/ML 20 ML 20 ML ONE (16:08)
[2018-04-13] MEDS ORDERED: MEPERIDINE 50 MG/ML SYR ONE (16:34)
--- NOTE | 2018-04-13 16:42 | RADIOLOGY IMAGING REPORT ---
FACILITY: [facility] - [place] PATIENT NAME: Rosemarie Fu : 1940 MR: [id number] V: [id number] EXAM DATE: ORDERING PHYSICIAN: MINE SON TECHNOLOGIST: Location: [facility] Patient: Rosemarie Fu : 1940 Visit/Account:[id number] Date of Sevice: 04/13/2018 Study: C-ARM FLUORO 1 HR Indication: Intraoperative fluoroscopy Findings:2 intraoperative spot films demonstrates the presence of 3 cannulated screws fixing a right femoral neck fracture. There appears to be good anatomic alignment. A fluoroscopy exposure of 0.329 mGycm2 DAP was recorded. IMPRESSION: Intraoperative spot films. Report Dictated By: Jeff High at 04/13/2018 4:36 PM Report E-Signed By: Jeff High at 04/13/2018 4:37 PM WSN:[id number]
[2018-04-13] MEDS ORDERED: diphenhydrAMINE 25 MG CAP PO PRN (17:35)
[2018-04-13] MEDS ORDERED: ONDANSETRON 4 MG/2 ML VIAL IVP PRN (17:35)
[2018-04-13] MEDS ORDERED: MAGNESIUM HYDROXIDE* 30ML UDCP PO PRN (17:35)
[2018-04-13] MEDS ORDERED: FLUSH 10 ML SYR IVP PRN (17:35)
[2018-04-13] MEDS ORDERED: MAGNESIUM CITRATE 300 ML BTL PO PRN (17:35)
[2018-04-13] MEDS ORDERED: ACETAMINOPHEN 500 MG TAB PO PRN (17:35)
[2018-04-13] MEDS ORDERED: BISACODYL 10 MG SUPP PR PRN (17:35)
[2018-04-13] MEDS ORDERED: KCL/D5LR 20 MEQ/1000 ML PREMIX 1,000 ML IV PRN (17:35)
[2018-04-13] MEDS: KETOROLAC 30 MG/ML VIAL IVP PRN (21:19)
[2018-04-14] VITALS (10 sets, daily range): BP systolic 118–145; BP diastolic 56–87
[2018-04-14] MEDS ORDERED: NS(*) 0.9% 250 ML BAG 250 ML ONE (00:13)
[2018-04-14] MEDS: ceFAZolin(*) 1 GM VIAL 1 GM in NS(*) 0.9% 100 ML ADDVANT BAG 100 ML IVPB SCH ×2 (00:15→08:44)
[2018-04-14] MEDS: KETOROLAC 30 MG/ML VIAL IVP PRN (05:53)
[2018-04-14] MEDS ORDERED: ALLOPURINOL 300 MG TAB PO PRN (08:00)
[2018-04-14] MEDS ORDERED: MAGNESIUM SUL* 4 GM/100 ML BAG 100 ML IVPB ONE ×2 (09:00→11:00)
[2018-04-14] MEDS ORDERED: MIRTAZAPINE 15 MG PO SCH (09:00)
[2018-04-14] MEDS: POTASSIUM CHL 10 MEQ TABCR PO SCH ×2 (09:16→16:26)
[2018-04-14] MEDS: DIAZEPAM 5 MG TAB PO PRN ×2 (09:16→20:23)
[2018-04-14] MEDS: ENOXAPARIN 40 MG/0.4ML SYR SC SCH (09:17)
[2018-04-14] MEDS ORDERED: LIDOCAINE/SOD BICARB 8.4% SYR ONE (10:01)
[2018-04-14] MEDS ORDERED: LIDOCAINE/SOD BICARB 8.4% SYR ID ONE (10:25)
--- NOTE | 2018-04-14 11:14 | OPERATIVE REPORT 1 ---
EVENT DATE: April 13, 2018 SURGEON: Cristhian Mcgarry MD ANESTHESIOLOGIST: José Luis Dutton MD ANESTHESIA: PREOPERATIVE DIAGNOSIS Right femoral neck fracture displaced. POSTOPERATIVE DIAGNOSIS Right femoral neck fracture displaced. PROCEDURE PERFORMED Closed reduction and percutaneous pinning of right hip. ESTIMATED BLOOD LOSS Minimal. FLUIDS Minimal. DESCRIPTION OF PROCEDURE The patient was brought to the operating room and placed in a traction bed. I had the right leg placed in traction. The left leg flexed, abducted and externally rotated. At this point, we brought fluoroscopy in and under fluoroscopy, putting a slight internal rotation and some traction with adduction we were able to reduce the fracture to acceptable alignment. Once we had this both acceptable on AP and lateral, we then prepped and draped in the normal fashion using Prevail. A large curtain drape then placed. Under fluoroscopy, I made an incision directly over the greater trochanter just on the inferior aspect. The skin was incised and taken down to the subcutaneous tissue. The subcutaneous tissue was bluntly dissected down to the retinaculum. The retinaculum was incised. The muscle was then brought anteriorly up from there. The first pin I placed was to be inferior and in the middle just to protect this as this was a shearing type fracture. Once I had the pin in correct position on AP and lateral, I then used a gun guide to place a pin anterior and posterior and superior. Once I had all of the pins in, I placed four pins at this point stabilizing the fracture. I then drilled the inferior screw first and then placed a Synthes 7.3 mm cannulated screw across it without any difficulty getting good compression. I then placed a second and third screws. Once I had those screws and I felt I had a good spread into the head, I did not fill the fourth one and I was able to pull the pin. Under fluoroscopy, AP and lateral, I made sure I had excellent alignment. The screws were in good position, good compression. I closed the retinaculum using 2-0 Vicryl, the subcutaneous tissue using 3-0 Vicryl and teresa, Adaptic 4 x 4's, big bulky dressing. The patient to recovery. No complications. [facility]
--- NOTE | 2018-04-14 11:46 | Hospitalist Progress Note ---
Subjective Progress Notes Subjective She is very upset today. She has complaints about her breakfast, but not willing to answer my questions. Physical Exam Vital Signs Date Time Temp Pulse Resp B/P (MAP) Pulse Ox O2 Delivery O2 Flow Rate FiO2 04/14/18 11:31 97.9 85 16 143/74 (97) 96 Nasal Cannula 04/14/18 04:00 2.0 Intake and Output 04/14/18 01:00 Intake Total 2425 ml Output Total 240 ml Balance 2185 ml Intake Oral 540 ml IV Total 1885 ml Output Urine Total 240 ml General Appearance: Alert, Awake, No Acute Distress, Afebrile Neuro: No Gross deficits Cardiovascular: Regular Rate and Rhythm Respiratory: No Respiratory Distress, Clear to Auscultation Extremities: Warm, Perfused; No Edema Psych: Alert & Oriented X3, Other (angry, upset) Result Diagram: 04/14/1853004/14/18530 Assessment and Plan Problems: (1) Hip fracture, right Status: Acute Assessment & Plan: She will be at some increased risk mainly due to her age and history of hereditary hemochromatosis. Her LFTs are modestly elevated most likely secondary to her hemochromatosis as she has not been phlebotomizing as directed by Dr. Tee Ruth. She will be placed on Lovenox for DVT prophylaxis. (2) Hypokalemia Status: Chronic Assessment & Plan: She has been on oral replacement, but is slightly low. Will give oral replacement with IV fluids. (3) Hemochromatosis Status: Chronic Assessment & Plan: She follows with Dr. Tee Ruth at [facility], but has been intermittent with her phlebotomy. (4) Hypomagnesemia Status: Acute Assessment & Plan: Her magnesium is 1.2. She will get IV replacement today, recheck level tomorrow. Exam Sepsis Risk: No Definite Risk JOON TORRES DUMPER MOLD CLEANER Apr 14, 2018 11:46
[2018-04-14] MEDS ORDERED: ceFAZolin(*) 1 GM VIAL 1 GM in NS(*) 0.9% 100 ML ADDVANT BAG 100 ML IVPB SCH (19:00)
[2018-04-14] MEDS: MIRTAZAPINE 15 MG PO SCH (20:22)
--- NOTE | 2018-04-14 21:49 | RADIOLOGY IMAGING REPORT ---
[place] [facility] [place] NAME: Rosemarie Fu : 1940 MR: [id number] V: [id number] EXAM DATE: ORDERING PHYSICIAN: ALO BURRELL TECHNOLOGIST: Location: [facility] [place] Patient: Rosemarie Fu : 1940 Visit/Account:[id number] Date of Sevice: 04/14/2018 SHOULDER MIN 2 VIEWS RIGHT COMPARISONS: None. ADDITIONAL PERTINENT HISTORY: Shoulder pain after fall. FINDINGS: Osseous structures: Nondisplaced fracture involving the base of the greater tuberosity. This is not s ignificantly displaced. Joint spaces: Negative. Surrounding soft tissues: Negative. IMPRESSION: 1. Nondisplaced fracture involving the base of the greater tuberosity. 2. Remaining portions of the exam are unremarkable. Report Dictated By: Abhinav Branch MD at 04/14/2018 9:44 PM Report E-Signed By: Abhinav Branch MD at 04/14/2018 9:45 PM WSN:[id number]
[2018-04-15 06:11] LABS: PLATELET COUNT, AUTOMATED 145 K/uL (150-450)
[2018-04-15] MEDS ORDERED: INFLUENZA VIRUS VAC 0.5ML SYR IM ONLY ONE (09:05)
[2018-04-15] MEDS: ALLOPURINOL 100 MG TAB PO SCH (09:51)
[2018-04-15] MEDS: POTASSIUM CHL 10 MEQ TABCR PO SCH ×2 (09:51→17:44)
[2018-04-15] MEDS: ENOXAPARIN 40 MG/0.4ML SYR SC SCH (09:54)
[2018-04-15 10:15] VITALS: BP 130/77
--- NOTE | 2018-04-15 10:53 | Hospitalist Progress Note ---
Subjective Progress Notes Subjective She has no complaints this morning. She had complaints last night of shoulder pain. X-ray was performed and showed non-displaced fracture of the right greater tuberosity. She is improving in pain this morning. Patient Complains of: Cardiovascular: No: Chest Pain Respiratory: No: Shortness of Breath Physical Exam Vital Signs Date Time Temp Pulse Resp B/P (MAP) Pulse Ox O2 Delivery O2 Flow Rate FiO2 04/15/18 10:15 97.8 84 20 130/77 (94) 94 Nasal Cannula 1.5 Intake and Output 04/15/18 07:00 Intake Total 940 ml Output Total 1200 ml Balance -260 ml Intake Oral 740 ml IV Total 200 ml Output Urine Total 1200 ml General Appearance: Alert, Awake, No Acute Distress, Afebrile Neuro: No Gross deficits Cardiovascular: Regular Rate and Rhythm Respiratory: No Respiratory Distress, Clear to Auscultation GI: Soft and Non-Tender Extremities: Warm, Perfused; No Edema Psych: Alert & Oriented X3, Appropriate Mood & Affect Result Diagram: 04/15/18 0557 04/15/18 0557 Assessment and Plan Problems: (1) Hip fracture, right Status: Acute Assessment & Plan: She was admitted after sustaining fracture to the right femoral neck after a fall at home. She underwent surgical repair 04/14. She has been partial weight bearing to the leg. She continues to work with PT/OT. She was placed on Lovenox for DVT prophylaxis. (2) Hypokalemia Status: Chronic Assessment & Plan: She has been on oral replacement, but is slightly low. Will give oral replacement. (3) Hemochromatosis Status: Chronic Assessment & Plan: She follows with Dr. Tee Ruth at [facility], but has been intermittent with her phlebotomy. (4) Hypomagnesemia Status: Acute Assessment & Plan: Her magnesium was 1.2 upon admission. She did receive IV replacement 04/14, magnesium now 2.1. Exam Sepsis Risk: No Definite Risk JOON TORRES FLOOR SWEEPER Apr 15, 2018 10:52
--- NOTE | 2018-04-15 10:57 | Hospitalist Progress Note ---
Subjective Progress Notes Subjective She has no complaints this morning. She had complaints last night of shoulder pain. X-ray was performed and showed non-displaced fracture of the right greater tuberosity. She is improving in pain this morning. Patient Complains of: Cardiovascular: No: Chest Pain Respiratory: No: Shortness of Breath Physical Exam Vital Signs Date Time Temp Pulse Resp B/P (MAP) Pulse Ox O2 Delivery O2 Flow Rate FiO2 04/15/18 10:15 97.8 84 20 130/77 (94) 94 Nasal Cannula 1.5 Intake and Output 04/15/18 07:00 Intake Total 940 ml Output Total 1200 ml Balance -260 ml Intake Oral 740 ml IV Total 200 ml Output Urine Total 1200 ml General Appearance: Alert, Awake, No Acute Distress, Afebrile Neuro: No Gross deficits Cardiovascular: Regular Rate and Rhythm Respiratory: No Respiratory Distress, Clear to Auscultation GI: Soft and Non-Tender Extremities: Warm, Perfused; No Edema Psych: Alert & Oriented X3, Appropriate Mood & Affect Result Diagram: 04/15/18 0557 04/15/18 0557 Assessment and Plan Problems: (1) Hip fracture, right Status: Acute Assessment & Plan: She was admitted after sustaining fracture to the right femoral neck after a fall at home. She underwent surgical repair 04/14. She has been partial weight bearing to the leg. She continues to work with PT/OT. She was placed on Lovenox for DVT prophylaxis. (2) Fracture of greater tuberosity of right humerus Status: Acute Assessment & Plan: She had complaints 04/14 of shoulder pain. X-ray was performed and showed non-displaced fracture of the right greater tuberosity. Per Dr. Mcgarry, she should be non-weight bearing in the upper extremity and will be placed in a sling. (3) Hypokalemia Status: Chronic Assessment & Plan: She has been on oral replacement, but is slightly low. Will give oral replacement. (4) Hemochromatosis Status: Chronic Assessment & Plan: She follows with Dr. Tee Ruth at [facility], but has been intermittent with her phlebotomy. (5) Hypomagnesemia Status: Acute Assessment & Plan: Her magnesium was 1.2 upon admission. She did receive IV replacement 04/14, magnesium now 2.1. Exam Sepsis Risk: No Definite Risk Problem Qualifiers (1) Fracture of greater tuberosity of right humerus: Encounter type: initial encounter Fracture type: closed Fracture alignment: nondisplaced Qualified Codes: S42.254A - Nondisplaced fracture of greater tuberosity of right humerus, initial encounter for closed fracture JOON TORRES CUSTOMER DEVELOPMENT REPRESENTATIVE Apr 15, 2018 10:57
[2018-04-15 15:00] VITALS: BP 120/81
[2018-04-15] MEDS: DIAZEPAM 5 MG TAB PO PRN (16:02)
[2018-04-15] MEDS: MIRTAZAPINE 15 MG PO SCH (21:15)
[2018-04-16 00:07] VITALS: BP 155/80
[2018-04-16] MEDS: POTASSIUM CHL 10 MEQ TABCR PO SCH (08:45)
[2018-04-16 08:46] VITALS: BP 145/78
[2018-04-16] MEDS: ALLOPURINOL 100 MG TAB PO SCH (09:12)
[2018-04-16] MEDS: ENOXAPARIN 40 MG/0.4ML SYR SC SCH (09:13)
[2018-04-16] MEDS ORDERED: PER PO (10:34)
[2018-04-16] MEDS ORDERED: OXYC20TA99 PO (10:34)
[2018-04-16] MEDS ORDERED: ALLO100T70 PO (10:34)
--- NOTE | 2018-04-16 10:41 | Hospitalist Depart ---
Discharge Summary Reason for Hosp/Final Diag: (1) Hip fracture, right Status: Acute Hospital Course & Plan: She was admitted after sustaining fracture to the right femoral neck after a fall at home. She underwent surgical repair 04/14. She has been partial weight bearing to the leg. She continues to work with PT/OT. She was placed on Lovenox for DVT prophylaxis. She will be transferred to [facility] for further rehabilitation. She does agree to this plan. (2) Fracture of greater tuberosity of right humerus Status: Acute Hospital Course & Plan: She had complaints 04/14 of shoulder pain. X-ray was performed and showed non-displaced fracture of the right greater tuberosity. Per Dr. Mcgarry, she should be non-weight bearing in the upper extremity and will be placed in a sling. (3) Hypokalemia Status: Chronic Hospital Course & Plan: She has been on oral replacement, but is slightly low. Will give oral replacement. (4) Hemochromatosis Status: Chronic Hospital Course & Plan: She follows with Dr. Tee Ruth at [facility], but has been intermittent with her phlebotomy. (5) Hypomagnesemia Status: Acute Hospital Course & Plan: Her magnesium was 1.2 upon admission. She did receive IV replacement 04/14, magnesium now 2.1. Departure Latest Vital Signs Vital Signs 04/16/18 08:46 Temp 99.0 Pulse 86 Resp 16 B/P (MAP) 145/78 (100) Pulse Ox 94 O2 Delivery Nasal Cannula O2 Flow Rate 2.0 Weight (Pounds): 130 Weight (Ounces): 7.0 Result Diagram: 04/15/18 0557 04/15/18 0557 Condition: Improved Discharge: Fpc PT/OT Follow Up For: PT For Strengthening, OT For ADL's, PT Evaluation and Treat, ST Evaluation and Treat, OT Evaluation and Treat Discharge Instructions Home Meds Active Scripts Oxycodone Hcl (OXYCONTIN) 20 Mg Tab.er.12h, 20 MG PO Q12H PRN for PAIN, #14 TAB Prov:JOON TORRES PARIMUTUEL TICKET SELLER 04/16/18 Oxycodone/Acetaminophen (OXYCODONE/ACETAMINOPHEN 5MG/325 MG) 5 Mg/325 Mg Tab, 1- 2 TAB PO Q4H PRN for BREAKTHROUGH PAIN, #56 TAB Prov:JOON TORRES PARIMUTUEL TICKET SELLER 04/16/18 Allopurinol (ALLOPURINOL) 100 Mg Tablet, 100 MG PO QDAY, #30 TAB Prov:JOON TORRES PARIMUTUEL TICKET SELLER 04/16/18 Ibuprofen (IBUPROFEN) 800 Mg Tablet, 1 TAB PO Q8H, #30 TAB 0 Refills Take with food every 8 hours. Prov:ALO RESENDEZ MD 07/19/17 Potassium Chloride (KLOR-CON 10) 10 Meq Tablet.er, 10 MEQ PO BIDBS for low potassium, #60 TAB Prov:SHAVONNE WESLEY MD 05/24/17 Reported Medications Magnesium Hydroxide (MILK OF MAGNESIA) 400 Mg/5 Ml Oral.susp, 1 TBS PO BID, BOTTLE for magnesium replacement 04/13/18 Mirtazapine (MIRTAZAPINE) 30 Mg Tab.rapdis, 30 MG PO DAILY 05/20/17 Discontinued Reported Medications Allopurinol (ZYLOPRIM) 300 Mg Tablet, 15 MG PO QDAY PRN for PAIN, TAB 03/20/18 Discontinued Scripts Hydromorphone Hcl (HYDROMORPHONE HCL) 2 Mg Tablet, 2-4 MG PO Q4H for PAIN, #20 TAB 0 Refills Prov:ALO RESENDEZ MD 07/19/17 Magnesium Oxide (MAGNESIUM OXIDE) 400 Mg Tablet, 400 MG PO DAILY, #30 TAB Prov:SHAVONNE WESLEY MD 05/24/17 Diet: Regular Venous Thromboembolism Antithrombotics Is Pt On Any Antithrombotics?: No (due to upcoming surgical procedure) Problem Qualifiers (1) Fracture of greater tuberosity of right humerus: Encounter type: initial encounter Fracture type: closed Fracture alignment: nondisplaced Qualified Codes: S42.254A - Nondisplaced fracture of greater tuberosity of right humerus, initial encounter for closed fracture MELISSAJOON Robb [facility] Apr 16, 2018 10:41
[2018-04-16 12:22] VITALS: BP 153/76
== END 2018-04-16 13:43 | disposition home or self-care (01) | DRG 481 ==
LOC: ER 21:50 → MED 04-13 00:21
PROVIDERS: ADMIT Internal Medicine; ATTEND Internal Medicine
PROC: 0QSB34Z Reposition Right Lower Femur with Internal Fixation Device, Percutaneous Approach (ICD-10-PCS; principal; 2018-04-13 15:00)
DX: S72.001A Fracture of unspecified part of neck of right femur, initial encounter for closed fracture (principal); S42.254A Nondisplaced fracture of greater tuberosity of right humerus, initial encounter for closed fracture; E87.6 Hypokalemia; E83.42 Hypomagnesemia; K21.9 Gastro-esophageal reflux disease without esophagitis; E83.119 Hemochromatosis, unspecified; M1A.9XX0 Chronic gout, unspecified, without tophus (tophi); D12.6 Benign neoplasm of colon, unspecified; F32.9 Major depressive disorder, single episode, unspecified; Z87.891 Personal history of nicotine dependence; Z23 Encounter for immunization; Z85.3 Personal history of malignant neoplasm of breast; W01.0XXA Fall on same level from slipping, tripping and stumbling without subsequent striking against object, initial encounter; Y92.009 Unspecified place in unspecified non-institutional (private) residence as the place of occurrence of the external cause; Y99.8 Other external cause status
CPT/HCPCS: 36415; 71045; 76000; 76942; 82040; 82247; 82310; 82374; 82435; 82565; 82947; 83735; 84075; 84132; 84155; 84295; 84450; 84460; 84520; 85014; 85018; 85025; 85610; 90471; 90674; 93005; 96374; 97162; 97166; 99285; C1758; J0690; J1170; J1650; J1885; J2175; J2250; J2550; J2704; J2795; J3475; J3480; J3490; J7050

== ENCOUNTER → 2018-04-12 | Outpatient (CLI) | payer MEDICARE, BC ==
[~2018-04-12] MED LIST changes: +ALLO100T70 PO; +MOM PO; +OXYC20TA99 PO; +PER PO
[2018-04-13 12:28] VITALS: BMI 20.4
== END ==
LOC: AMB 21:03
PROVIDERS: ATTEND Nurse Practitioner
DX: M79.604 Pain in right leg (principal); W19.XXXA Unspecified fall, initial encounter
CPT/HCPCS: A0425; A0433

== ENCOUNTER → 2018-04-16 | Outpatient (CLI) | payer MEDICARE, BC ==
[2018-04-13 12:28] VITALS: BMI 20.4
[~2018-04-16] MED LIST changes: +ALLO100T70 PO; +MOM PO; +OXYC20TA99 PO; +PER PO
== END ==
LOC: AMB 13:30
PROVIDERS: ATTEND Nurse Practitioner
DX: S72.001A Fracture of unspecified part of neck of right femur, initial encounter for closed fracture (principal); R53.1 Weakness; Z74.01 Bed confinement status; Z99.81 Dependence on supplemental oxygen
CPT/HCPCS: A0425; A0428

== ENCOUNTER → 2018-08-24 | Outpatient (REF) | payer MEDICARE, BC ==
[2018-04-13 12:28] VITALS: BMI 20.4
[~2018-08-24] MED LIST changes: -MIRT-28 PO; +MIRT30TA10 PO
[2018-08-24 15:32] LABS: PLATELET COUNT, AUTOMATED 296 K/uL (150-450)
== END ==
LOC: ZZSTITCHES 14:09
PROVIDERS: ATTEND Physician Assistant
DX: E53.8 Deficiency of other specified B group vitamins (principal); E87.6 Hypokalemia; R53.83 Other fatigue; E61.2 Magnesium deficiency
CPT/HCPCS: 82040; 82247; 82306; 82310; 82374; 82435; 82565; 82607; 82947; 83540; 83735; 84075; 84132; 84155; 84295; 84450; 84460; 84520; 84550; 84630; 85025

== ENCOUNTER → 2018-11-28 | Outpatient (REF) | payer MEDICARE, BC ==
[2018-04-13 12:28] VITALS: BMI 20.4
== END ==
LOC: ZZPBJ 17:20
PROVIDERS: ATTEND Orthopaedic Surgery
DX: Z01.812 Encounter for preprocedural laboratory examination (principal)

== ENCOUNTER → 2018-11-28 | Outpatient (REF) | payer MEDICARE, BC ==
[2018-04-13 12:28] VITALS: BMI 20.4
[2018-11-28 17:51] LABS: PLATELET COUNT, AUTOMATED 281 K/uL (150-450)
== END ==
LOC: ZZSTITCHES 17:13
PROVIDERS: ATTEND Physician Assistant
DX: Z01.812 Encounter for preprocedural laboratory examination (principal); Z01.818 Encounter for other preprocedural examination; Z01.810 Encounter for preprocedural cardiovascular examination
CPT/HCPCS: 82040; 82247; 82310; 82374; 82435; 82565; 82947; 83540; 84075; 84132; 84155; 84295; 84450; 84460; 84520; 85025

== ENCOUNTER → 2018-12-11 | Outpatient (CLI) | payer MEDICARE, BC ==
[2018-04-13 12:28] VITALS: BMI 20.4
[~2018-12-11] MED LIST changes: -TRAZ50TA34 PO; +TRAZ50TA52 PO
--- NOTE | 2018-12-12 06:02 | RADIOLOGY IMAGING REPORT ---
[place] [facility] [place] NAME: Rosemarie Fu : 1940 MR: [id number] V: [id number] EXAM DATE: ORDERING PHYSICIAN: LADARIUS CHAMBERS TECHNOLOGIST: [place] [facility] [place] Fu : 1940 Visit/Account:[id number] Date of Sevice: 12/11/2018 Limited ultrasound of the pelvis: Indication: Intermittent postmenopausal bleeding. Technique: Imaging of the endometrium, only. Comparison: 04/30/2017 Findings: The endometrial stripe measures 7 mm. There is no evidence of free fluid or circumscribed s oft tissue abnormality in the endometrial cavity. IMPRESSION: As above. Report Dictated By: Jarrod Randolph MD at 12/12/2018 5:48 AM Report E-Signed By: Jarrod Randolph MD at 12/12/2018 5:58 AM WSN:[id number]
== END ==
LOC: US 07:05
PROVIDERS: ATTEND Obstetrics & Gynecology
DX: N95.0 Postmenopausal bleeding (principal)
CPT/HCPCS: 76857

== ENCOUNTER 2018-12-19 03:38 | Observation (INO) | payer MEDICARE, BC ==
[2018-12-19] VITALS (14 sets, daily range): BP systolic 127–165; BP diastolic 60–97
[~2018-12-19] VITALS: Ht 170.2 cm; Wt 56.9 kg
[2018-12-19] MEDS ORDERED: fentaNYL CITR 100 MCG/2 ML AMP ONE (08:15)
[2018-12-19] MEDS ORDERED: PROPOFOL EMUL(*) 10MG/ML 20 ML 20 ML ONE (08:15)
[2018-12-19] MEDS ORDERED: ONDANSETRON 4 MG/2 ML VIAL ONE (08:15)
[2018-12-19] MEDS ORDERED: DEXAMETHASONE SOD PHOS 10MG/ML ONE (08:15)
[2018-12-19] MEDS ORDERED: LIDOCAINE MPF 1% 5 ML VIAL ONE (08:15)
[2018-12-19] MEDS ORDERED: ceFAZolin(*) 1 GM VIAL 1 GM in NS(*) 0.9% 100 ML MINI-BAG 100 ML IVPB ONE (09:25)
[2018-12-19] MEDS ORDERED: MIDAZOLAM 2 MG/2 ML VIAL IVP PRN (09:25)
[2018-12-19] MEDS ORDERED: LIDOCAINE/SOD BICARB 8.4% SYR ID ONE (09:25)
[2018-12-19] MEDS ORDERED: FAMOTIDINE 20 MG TAB PO ONE (09:25)
[2018-12-19] MEDS ORDERED: NORMOSOL R SOLN(*) 1000 ML BAG 1,000 ML IV PRN (09:25)
[2018-12-19] MEDS ORDERED: ROPIVACAINE 0.2% 20 ML VIAL ONE (10:33)
[2018-12-19] MEDS ORDERED: oxyCODON/ACET (*)5/325MG (CII) 1 TAB TAB PO PRN (11:40)
[2018-12-19] MEDS ORDERED: FLUSH 10 ML SYR IVP PRN (11:40)
[2018-12-19] MEDS ORDERED: ONDANSETRON 4 MG/2 ML VIAL IVP PRN (11:40)
[2018-12-19] MEDS ORDERED: MAGNESIUM CITRATE 300 ML BTL PO PRN (11:40)
[2018-12-19] MEDS ORDERED: diphenhydrAMINE 25 MG CAP PO PRN (11:40)
[2018-12-19] MEDS ORDERED: ACETAMINOPHEN 500 MG TAB PO PRN (11:40)
[2018-12-19] MEDS ORDERED: KCL/D5LR 20 MEQ/1000 ML PREMIX 1,000 ML IV PRN (11:40)
[2018-12-19] MEDS ORDERED: PROMETHAZINE 25 MG/ML 1 ML AMP IVP PRN (11:40)
[2018-12-19] MEDS ORDERED: KETOROLAC 30 MG/ML VIAL IVP PRN (11:40)
[2018-12-19] MEDS ORDERED: BISACODYL 10 MG SUPP PR PRN (11:40)
[2018-12-19] MEDS ORDERED: MAGNESIUM HYDROXIDE* 30ML UDCP PO PRN (11:40)
--- NOTE | 2018-12-19 11:44 | RADIOLOGY IMAGING REPORT ---
FACILITY: [facility] PATIENT NAME: Rosemarie Fu : 1940 MR: [id number] V: [id number] EXAM DATE: ORDERING PHYSICIAN: MINE SON TECHNOLOGIST: Location: [facility] Patient: Rosemarie Fu : 1940 Visit/Account:[id number] Date of Sevice: 12/19/2018 OR fluoroscopy films: Right hip History: Right hip hardware removal Comparison: 04/13/2018 Findings: Fluoroscopy and imaging was provided for Dr. Son. 2.1 seconds of fluoroscopy time was utilized for a DAP of 0.1080 Gycm2. 1 images of the right hip was obtained intraoperatively. IMPRESSION: Fluoroscopy and imaging provided during hardware removal, please see the performing clini cians report for details. Report Dictated By: Kaylen Santamaria MD at 12/19/2018 11:36 AM Report E-Signed By: Kaylen Santamaria MD at 12/19/2018 11:38 AM WSN:[id number]
--- NOTE | 2018-12-19 13:41 | NUR ---
Physical Therapy Impression Pt completed bed mobility with SBA and verbal cues. PT cues for sequencing for STS transfers, pt completed with CGA and RW. Ambulation x30' with RW, pt reporting increasing lightheadedness as session progressed. BP remained WNL, and slightly high throughout. SPO2 and pulse rate WNL. Pt transferred safely back into bed with CGA. She will require stair training prior to d/c. Rec [facility] PT/ Physical Therapy Goals 1: Pt to complete bed mobility with Charity 2: Pt to complete transfers with SBA and RW 3: Pt to ambulate 80' with SBA and RW 4: Pt to asc/desc 4 stairs with railing and SBA Patient's Goals
--- NOTE | 2018-12-19 14:03 | Hospitalist Progress Note ---
Subjective Progress Notes Subjective Patient seen post-op. Reviewed PMHx (hemochromatosis, previous hip fracture, breast cancer, GERD) and medications. At present, she reports doing well. No CP/SOB/nausea. Physical Exam Vital Signs Date Time Temp Pulse Resp B/P (MAP) Pulse Ox O2 Delivery O2 Flow Rate FiO2 12/19/18 12:35 90 16 93 12/19/18 09:53 98.3 157/87 (110) Room Air General Appearance: Alert, Awake Cardiovascular: Regular Rate and Rhythm Respiratory: Clear to Auscultation Assessment and Plan Problems: (1) Hip pain Status: Acute Assessment & Plan: She has had previous hip fracture s/p ORIF now hospitalized following hardware removal. If she is not going to mobilize, would start DVT prophylaxis with Lovenox 30mg SQ daily until ambulating. Will follow. (2) Hemochromatosis Status: Chronic Assessment & Plan: Her iron and AST were elevated on labs done at end of November 2018. She will need to have follow up with Dr. Tee Ruth to discuss ongoing phlebotomy/monitoring. (3) GERD (gastroesophageal reflux disease) Status: Chronic Assessment & Plan: She is not currently on any medication for this. Monitor symptoms. JARRED WESLEY MD Dec 19, 2018 14:03
--- NOTE | 2018-12-19 15:39 | NUR ---
Occupational Therapy Impression Pt alert and agreeable to OT tx. Motivated to engage in tx. VSS throughout. SpO2 WNL on room air. Pt desires to discharge home tomorrow with possible HH and MOW. She has a walker, cane, and plans to take a sponge bath. Education provided for LB AE. SBA bed mobility. Close SBA/CGA ambulation with RW. SBA toileting. Mod (I) LB dressing with sock aid, prior to sx, pt reported not wearing socks. Pt reports no further needs at this time. Recommend HH and MOW. Occupational Therapy Goals Patient's Goal
--- NOTE | 2018-12-19 15:40 | NUR ---
Occupational Therapy Impression Pt alert and agreeable to OT tx. Motivated to engage in tx. VSS throughout. SpO2 WNL on room air. Pt desires to discharge home tomorrow with possible HH and MOW. She has a walker, cane, and plans to take a sponge bath. Education provided for LB AE. SBA bed mobility. Close SBA/CGA ambulation with RW. SBA toileting. Mod (I) LB dressing with sock aid, prior, pt reported not wearing socks. Pt reports no further needs at this time. Recommend HH and MOW. Occupational Therapy Goals Patient's Goal
[2018-12-19] MEDS ORDERED: NS(*) 0.9% 250 ML BAG 250 ML ONE (17:00)
[2018-12-19] MEDS: ceFAZolin(*) 1 GM VIAL 1 GM in NS(*) 0.9% 100 ML MINI-BAG 100 ML IVPB SCH (17:14)
[2018-12-19] MEDS ORDERED: MIRTAZAPINE 30 MG TAB 30 MG TAB PO SCH (21:00)
[2018-12-20] MEDS: ceFAZolin(*) 1 GM VIAL 1 GM in NS(*) 0.9% 100 ML MINI-BAG 100 ML IVPB SCH ×2 (01:38→09:31)
[2018-12-20 02:08] VITALS: BP 168/89
[2018-12-20 06:02] LABS: PLATELET COUNT, AUTOMATED 182 K/uL (150-450)
[2018-12-20 06:47] VITALS: BP 162/88
--- NOTE | 2018-12-20 07:38 | OPERATIVE REPORT 1 ---
EVENT DATE: December 19, 2018 SURGEON: Cristhian Mcgarry MD ANESTHESIOLOGIST: Fritz Pantoja MD ANESTHESIA: General. WIRE STITCHER OPERATOR: Jacob Ventura PA-C PREOPERATIVE DIAGNOSIS Retained painful hardware of the hip. POSTOPERATIVE DIAGNOSIS Retained painful hardware of the hip. PROCEDURE PERFORMED Removal of painful hardware. ESTIMATED BLOOD LOSS Minimal. DESCRIPTION OF PROCEDURE The patient was brought to the operating room and placed in a lateral position on the fracture table. He was prepped and draped in normal sterile fashion using Prevail. Shower curtain Ioban was placed over the top. We used the prior incision. Sharp dissection was taken down. Blunt dissection was taken down to the screws. I was able to find the screws without any difficulty. I was able to back all three screws out using actually a power screwdriver without any difficulty. Once they were done, I had full range of motion of the hip. I closed using 2-0 Vicryl and teresa, adaptic, 4 x 4's, big dressing. Patient went to recovery with no complications. [facility]
--- NOTE | 2018-12-20 08:29 | Hospitalist Progress Note ---
Subjective Patient Complains of: Gastrointestinal: No Nausea, No Vomiting Musculoskeletal: Pain Physical Exam Vital Signs Date Time Temp Pulse Resp B/P (MAP) Pulse Ox O2 Delivery O2 Flow Rate FiO2 12/20/18 06:47 98.1 73 16 162/88 (112) 93 Nasal Cannula 0.5 Intake and Output 12/20/18 07:01 Intake Total 2480 ml Balance 2480 ml Intake Oral 1380 ml IV Total 1100 ml # Voids 3 # Bowel Movements 1 General Appearance: Alert, Awake, No Acute Distress, Afebrile Cardiovascular: Normal Rhythm & Peripheral Pulses Respiratory: No Respiratory Distress Result Diagram: 12/20/1853012/20/18530 Assessment and Plan Problems: (1) Hip pain Status: Acute Assessment & Plan: She has had previous hip fracture s/p ORIF now hospitalized following hardware removal. (2) Hemochromatosis Status: Chronic Assessment & Plan: Her iron and AST were elevated on labs done at end of November 2018. She will need to have follow up with Dr. Tee Ruth to discuss ongoing phlebotomy/monitoring. (3) GERD (gastroesophageal reflux disease) Status: Chronic Assessment & Plan: She is not currently on any medication for this. Monitor symptoms. Exam Sepsis Risk: No Definite Risk MENON ARIELLE KAUR DO Dec 20, 2018 08:29
[2018-12-20] MEDS ORDERED: ENOXAPARIN 30 MG/0.3 ML SYR SC SCH (09:00)
--- NOTE | 2018-12-20 09:53 | DISCHARGE SUMMARY ---
HOSPITAL COURSE Rosemarie underwent hardware removal of her left hip yesterday. Due to her home status we kept her a night just to make sure she could pass physical therapy and her pain would be under control. This morning, she has absolutely no pain. She has actually been up walking. We are going to get her pass PT this morning and then she will go home, full weightbearing and follow up in 2 weeks. She has had no complications during her hospital stay. [facility]
[2018-12-20 10:23] VITALS: Ht 170.2 cm; Wt 56.9 kg
--- NOTE | 2018-12-20 11:23 | NUR ---
0710:Patient was upset from the time the RN walked into the room. Patient stating I am going home today no matter what. My route delivery service driver has a set time. RN asked patient what time the route delivery service driver need to be here and patient was unable to answer with a time. Said that route delivery service driver wanted to be in [place] by 300pm. RN stated that when PT was seen would ask for them to work with her first so we would be able to get her discharged. 0830: RN informed patient that the doctor was here and would be in to see her. 0930: started antibiotics and asked patient if she had talked to her route delivery service driver yet. Patient stated no. 1001: IV infiltrated. RN removed IV and gave patient a pain pill. 1020 Went in to help patient get dress and she informed RN and INK BLENDER what she didn't or need any help and wanted us to leave the room. 1045: RN asked patient if she had heard from her ride and patient stated yelling at RN demanding RN to take her to her car. RN tried to ask about her ride and patient stated no why would I call them when I don't have my paperwork. RN stated it would take 5 minutes and her ride would be here by then. Patient continued to yell at RN. RN asked patient not to yell but patient continued to yell.. RN left the room and asked the lead to assist the patient since she was upset with the RN.
--- NOTE | 2018-12-20 12:07 | NUR ---
Physical Therapy Impression Pt is safe to d.c home from a mobility stand point when medically appropriate. Brianna for bed mobility and transfers with RW. Ambulation x50' with RW and SBA. PT instruction for stair negotiation, pt completed 2x4 stairs with R) railing and SBA. Rec [facility] PT at d/c. Physical Therapy Goals 1: Pt to complete bed mobility with Brianna 2: Pt to complete transfers with SBA and RW 3: Pt to ambulate 80' with SBA and RW 4: Pt to asc/desc 4 stairs with railing and SBA Patient's Goals
--- NOTE | 2018-12-20 13:01 | NUR ---
Called pt to notify her that her meds are available for pickup at [facility] pharmacy until 6pm. discuss s.e. and precautions
== END 2018-12-20 08:47 | disposition home or self-care (01) ==
LOC: OR 03:38 → MED 12:35 → UNDOADMOB 12:35
PROVIDERS: ADMIT Orthopaedic Surgery; ATTEND Orthopaedic Surgery
DX: Z47.2 Encounter for removal of internal fixation device (principal)
CPT/HCPCS: 20680; 36415; 76000; 82728; 83540; 83550; 85025; 97116; 97161; 97165; A9270; G0378; J0690; J1100; J2001; J2405; J2704; J2795; J3010; J7030; J7050; 82040; 82247; 82310; 82374; 82435; 82565; 82947; 84075; 84132; 84155; 84295; 84450; 84460; 84520